=== PATIENT | male | born 1940 | race Caucasian/White ===

== ENCOUNTER → 2020-01-15 09:38 | Outpatient (BNVA) | payer MEDICARE, SELFPAY | PROVIDERS: Visit Provider Nurse Practitioner Family | DX: R26.81 Unsteadiness on feet (principal); E11.65 Type 2 diabetes mellitus with hyperglycemia; I10 Essential (primary) hypertension | CPT/HCPCS: 80053; 80061; 82044; 83036; 85025 ==

== ENCOUNTER → 2020-02-04 09:41 | Outpatient (BNVA) | payer MEDICARE, SELFPAY | PROVIDERS: Visit Provider Nurse Practitioner Family | DX: E87.1 Hypo-osmolality and hyponatremia (principal) | CPT/HCPCS: 80048 ==

== ENCOUNTER → 2020-06-22 09:40 | Outpatient (BNVA) | payer MEDICARE, SELFPAY | PROVIDERS: Visit Provider Nurse Practitioner Family | DX: E11.65 Type 2 diabetes mellitus with hyperglycemia (principal); I10 Essential (primary) hypertension | CPT/HCPCS: 80053; 80061; 83036; 85025 ==

== ENCOUNTER 2020-07-10 14:39 | Emergency (ER) | payer MEDICARE, SELFPAY ==
[2020-07-10 14:43] VITALS: BP 177/79; PULSE 96; RESP 18; TEMP 36.4; O2SAT 97; BMI 20.3
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
--- NOTE | 2020-07-10 14:59 | ECG_ITS ---
[facility] Test Date: 2020-07-10 Pat Name: Golden Priest Department: Room: Gender: Male Skimmer: : 1940 Requested By: Anju Sanderson Order Number: [id number] Darin MD: Yared Morgan M.D. Measurements Intervals [place] Rate: 99 P: 37 VA: 182 QRS: 20 QRSD: 90 T: 71 QT: 355 QTc: 457 Interpretive Statements SINUS RHYTHM SEPTAL MYOCARDIAL INFARCTION , PROBABLY OLD [40+ ms Q WAVE IN V1/V2] No previous ECG available for comparison Electronically Signed On 07-11-2020 0:20:32 CDT by Yared Morgan M.D. [email or web address]
--- NOTE | 2020-07-10 15:01 | W.ED.GENADLT ---
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 Qualifiers: Encounter type: initial encounter Fracture type: closed Fracture morphology: unspecified fracture morphology Fracture alignment: displaced Qualified Code(s): S12.100A - Unspecified displaced fracture of second cervical vertebra, initial encounter for closed fracture Multiple rib fractures Qualifiers: Encounter type: initial encounter Fracture type: closed Laterality: left Qualified Code(s): S22.42XA - Multiple fractures of ribs, left side, initial encounter for closed fracture Closed L3 vertebral fracture Qualifiers: Encounter type: initial encounter Fracture morphology: wedge compression Qualified Code(s): S32.030A - Wedge compression fracture of third lumbar vertebra, initial encounter for closed fracture Condition: Stable Discharge Date/Time: 07/10/20 17:38 Coding Level of Care Code ED Mail Service Coordinator for Chg Fwd Exam Comprehensive
[2020-07-10 15:14] LABS: Basophils # 0.1 10^3/uL (0.0-0.1); Basophils % 0.5 %; Eosinophils # 0.4 10^3/uL (0.0-0.8); Eosinophils % 2.8 %; Hemoglobin 12.5 g/dL (11.7-16.6); Lymphocytes # 1.1 10^3/uL (0.8-4.8); Lymphocytes % 7.3 %; Mean Corpuscular HGB Conc 33.8 g/dL (30.0-36.0); Mean Corpuscular Hemoglobin 32.6 pg (28.0-34.0); Mean Corpuscular Volume 96.4 fL (80-94); Mean Platelet Volume 9.7 fL (7.4-10.4); Monocytes # 1.1 10^3/uL (0.2-0.9); Monocytes % 6.9 %; Neutrophils % 81.4 %; Nucleated Red Blood Cells % 0 %; Platelet Count 151 10^3/cmm (130-400); Red Blood Count 3.84 10^6/uL (4.1-5.3); White Blood Count 15.7 10^3/uL (4.0-10.0)
[2020-07-10 15:41] LABS: Alanine Aminotransferase 22 U/L (0-41); Albumin Level 4.3 g/dL (3.5-5.2); Alkaline Phosphatase 56 IU/L (40-130); Anion Gap 15.6 (5-19); Aspartate Amino Transferase 31 U/L (0-40); Blood Urea Nitrogen 11 mg/dL (8-23); Calcium 9.7 mg/dL (8.5-10.5); Carbon Dioxide 21 mmol/L (22-29); Chloride 98 mmol/L (98-107); Globulin 2.9 g/dL (1.3-4.6); Glucose 179 mg/dL (65-115); Osmolality Calculated 273 mOsm/kg (285-295); Potassium 3.6 mmol/L (3.5-5.1); Sodium 131 mmol/L (136-145); Total Bilirubin 0.4 mg/dL (0.15-1.2); Total Protein 7.2 g/dL (6.6-8.7)
[2020-07-10 15:44] LABS: Troponin(5th) Baseline 15 ng/L (0-15)
[2020-07-10] MEDS: iohexol 300 mg/mL 100 mL Btl IV (15:53)
[2020-07-10 17:30] LABS: Urine Appearance Clear (CLEAR); Urine Color Yellow (Yellow)
[2020-07-10 17:31] LABS: Bilirubin Urine Neg (NEGATIVE); Blood Urine 2+ (Negative); Glucose Urine UA Trace (Normal); Ketones Urine 1+ (Negative); Leukocyte Esterase Urine Negative (Negative); Nitrate Urine Negative (Negative); Protein Urine 1+ (Negative); RBC Urine 0-4 /hpf (0-2); Urobilinogen Urine Norm (Negative); WBC Urine 0-4 /hpf (0-5); pH Urine 6 (5-7)
[2020-07-10 17:32] LABS: Add Urine Culture? No; Bacteria Urine TRACE
[2020-07-10 17:38] VITALS: BP 142/75; PULSE 70; RESP 16; O2SAT 97
--- NOTE | 2020-07-10 19:58 | PC.NURSE ---
patient belongings of a wallet and cell phone turned over to security; call made to [facility] to pass info along; no next of kin contact number on record.
== END 2020-07-10 17:38 | disposition short-term general hospital (02) ==
PROVIDERS: Emergency Provider Emergency Medicine
DX: J93.9 Pneumothorax, unspecified (principal); S02.109A Fracture of base of skull, unspecified side, initial encounter for closed fracture; S12.100A Unspecified displaced fracture of second cervical vertebra, initial encounter for closed fracture; S22.42XA Multiple fractures of ribs, left side, initial encounter for closed fracture; S32.030A Wedge compression fracture of third lumbar vertebra, initial encounter for closed fracture; E11.9 Type 2 diabetes mellitus without complications; I10 Essential (primary) hypertension; F17.220 Nicotine dependence, chewing tobacco, uncomplicated; V89.2XXA Person injured in unspecified motor-vehicle accident, traffic, initial encounter
CPT/HCPCS: 12345; 36415; 70450; 71045; 71260; 72125; 74177; 80053; 81001; 84484; 85025; 93005; 99282; 99285; Q9967